=== PATIENT | female | born 1940 | race Two or more races ===

== ENCOUNTER 2017-06-21 13:19 | Emergency (ER) | payer OTHER ==
[2017-06-21 13:40] VITALS: TEMP 98; BMI 31.2
--- NOTE | 2017-06-21 14:16 | PDOC ---
History of Present Illness - General History Source: Patient Exam Limitations: No Limitations - History of Present Illness Initial Comments: 06/21/17 15:01 The patient is a 76 year old female with a past medical history of hypercholesterolemia, osteoarthritis and hyperactive bladder who arrives to the ED s/p fall that occurred two hours ago. The patient states she was walking in the lobby of her apartment when she slipped on a wet floor. She subsequently fell backwards. In the ED she complains of pain to her left forearm, right hip and lower back. She denies taking anything for pain but states her pain is pretty severe. She denies hitting her head or LOC. She denies any change in vision or focal deficits. She denies any fever, chills, nausea, vomiting, diarrhea, cough, SOB, CP, or urinary symptoms. <Fariha Richardson - Last Filed: 06/21/17 17:00> <Zohaib Moyer - Last Filed: 06/21/17 17:23> - General Chief Complaint: Injury Stated Complaint: FALL Time Seen by Provider: 06/21/17 14:06 Past History <Fariha Richardson - Last Filed: 06/21/17 17:00> - Past Medical History Anemia: Yes Asthma: No Cancer: No Cardiac Disorders: Yes (CHEST PAIN/SOB) CVA: No COPD: No CHF: No Dementia: No Diabetes: No GI Disorders: Yes (ACID REFLUX) Disorders: No HTN: Yes Hypercholesterolemia: Yes Liver Disease: No Seizures: No Thyroid Disease: No - Surgical History Abdominal Surgery: No Appendectomy: No Cardiac Surgery: No Cholecystectomy: Yes Lung Surgery: No Neurologic Surgery: No Orthopedic Surgery: Yes (RT KNEE REPLACEMENT) - Immunization History Immunization Up to Date: Yes - Psycho/Social/Smoking Cessation Hx Anxiety: No Suicidal Ideation: No Smoking History: Never smoked Have you smoked in the past 12 months: No Hx Alcohol Use: No Drug/Substance Use Hx: No Substance Use Type: None <Zohaib Moyer - Last Filed: 06/21/17 17:23> - Past Medical History Allergies/Adverse Reactions: Allergies Allergy/AdvReac Type Severity Reaction Status Date / Time No Known Drug Allergies Allergy Verified 06/21/17 13:35 Home Medications: Ambulatory Orders Alendronate Na [Fosamax (Weekly)] 70 mg PO WEEKLY 04/29/12 Aspirin Coated [Ecotrin -] 81 mg PO DAILY 04/29/12 Multivitamin/Iron/Folic Acid [Centrum Ultra Women's Tablet] 1 each PO DAILY 29/10 Rosuvastatin Calcium [Crestor] 10 mg PO HS 04/29/12 Calcium 250Mg/Vit-D 125 Units [Oscal 250 mg+D -] 500 mg PO BID 07/27/12 Lubiprostone [Amitiza] 8 mcg PO BID 07/27/12 Solifenacin Succinate [Vesicare -] 5 mg PO DAILY 07/27/12 Oxycodone HCl/Acetaminophen [Percocet 5/325 -] 1 - 2 tab PO Q4H #10 tablet 10/06 Ondansetron [Zofran *Odt*] 8 mg SL TID #30 od.tablet 06/21/17 Oxycodone HCl/Acetaminophen [Percocet 5-325 mg Tablet] 1 - 2 tab PO Q6H #20 tab MDD 6 06/21/17 Review of Systems - Review of Systems Able to Perform ROS?: Yes Comments:: 06/21/17 15:02 GENERAL/CONSTITUTIONAL: No fever or chills. No weakness. HEAD, EYES, EARS, NOSE AND THROAT: No change in vision. No ear pain or discharge. No sore throat. CARDIOVASCULAR: No chest pain or shortness of breath. RESPIRATORY: No cough, wheezing, or hemoptysis. GASTROINTESTINAL: No nausea, vomiting, diarrhea or constipation. GENITOURINARY: No dysuria, frequency, or change in urination. MUSCULOSKELETAL: Present: lower back pain, right forearm pain, left hip pain No neck pain. SKIN: No rash NEUROLOGIC: No headache, vertigo, loss of consciousness, or change in strength/ sensation. ENDOCRINE: No increased thirst. No abnormal weight change. HEMATOLOGIC/LYMPHATIC: No anemia, easy bleeding, or history of blood clots. ALLERGIC/IMMUNOLOGIC: No hives or skin allergy. All Other Systems: Reviewed and Negative <Fariha Richardson - Last Filed: 06/21/17 17:00> *Physical Exam - Vital Signs Last Vital Signs Temp Pulse Resp BP Pulse Ox 98.0 F 77 18 164/78 100 06/21/17 13:35 06/21/17 13:35 06/21/17 13:35 06/21/17 13:35 06/21/17 13:35 - Physical Exam Comments: 06/21/17 15:04 GENERAL: Awake, alert, and fully oriented, in no acute distress HEAD: No signs of trauma EYES: PERRLA, EOMI, sclera anicteric, conjunctiva clear ENT: Auricles normal inspection, hearing grossly normal, nares patent, oropharynx clear without exudates. Moist mucosa NECK: Normal ROM, supple, no lymphadenopathy, JVD, or masses LUNGS: Breath sounds equal, clear to auscultation bilaterally. No wheezes, and no crackles HEART: Regular rate and rhythm, normal S1 and S2, no murmurs, rubs or gallops ABDOMEN: Soft, nontender, normoactive bowel sounds. No guarding, no rebound. No masses EXTREMITIES: Normal range of motion, no edema. No clubbing or cyanosis. No cords, erythema, or tenderness BACK: Tenderness on palpation to L2-L5 paraspinal muscles. NEUROLOGICAL: Cranial nerves II through XII grossly intact. Normal speech, normal gait SKIN: Warm, Dry, normal turgor, no rashes or lesions noted. <Fariha Richardson - Last Filed: 06/21/17 17:00> - Vital Signs Last Vital Signs Temp Pulse Resp BP Pulse Ox 98.0 F 77 18 164/78 100 06/21/17 13:35 06/21/17 13:35 06/21/17 13:35 06/21/17 13:35 06/21/17 13:35 <Zohaib Moyer - Last Filed: 06/21/17 17:23> ED Treatment Course - Medications Given in the ED: ED Medications Discontinued Medications Generic Name Dose Route Start Last Admin Trade Name Archie PRN Reason Stop Dose Admin Ondansetron HCl 8 mg 06/21/17 14:32 06/21/17 14:56 Zofran Odt - SL 06/21/17 14:33 8 mg ONCE ONE Administration Oxycodone/Acetaminophen 1 combo 06/21/17 14:33 06/21/17 14:56 Percocet 5/325 - PO 06/21/17 14:34 1 combo ONCE ONE Administration <Fariha Richardson - Last Filed: 06/21/17 17:00> Medical Decision Making - Medical Decision Making 06/21/17 16:47 Left forearm X-ray as reviewed by Dr. Myers reports no fracture, but a calcific density projecting over the volar aspect of the proximal carpal row on the lateral projection of uncertain etiology which may be chronic and recommended clinical correlation for point tenderness. Right hip x-ray as reviewed by Dr. Key reports no acute bony abnormalities. 06/21/17 17:01 CT of L spine without contrast as reviewed by Dr. Martini reports minimal anterolisthesis of L5 over S1, likely degenerative. Otherwise no compression fracture or subluxation identified. L5-S1 minimal central disc bulge with marked bilateral facet hypertrophy. L4-L5 marked bilateral facet hypertrophy with fusion. T11-T12 moderate degenerative disc disease. <Fariha Richardson - Last Filed: 06/21/17 17:00> *DC/Admit/Observation/Transfer - Attestations Scribe Attestion: 06/21/17 15:05 Documentation prepared by Fariha Richardson, acting as medical referral coordinator for Zohaib Moyer DO. <Fariha Richardson - Last Filed: 06/21/17 17:00> - Discharge Dispostion Admit: No - Attestations Physician Attestion: 06/21/17 14:16 I, Dr. Zohaib Moyer, attest that this document has been prepared under my direction and personally reviewed by me in its entirety. I further attest, that it accurately reflects all work, treatment, procedures and medical decision -making performed by me. <Zohaib Moyer - Last Filed: 06/21/17 17:23> Diagnosis at time of Disposition: Multiple contusions Lumbar back sprain Qualifiers: Encounter type: initial encounter Qualified Code(s): S33.5XXA - Sprain of ligaments of lumbar spine, initial encounter - Discharge Dispostion Disposition: HOME Condition at time of disposition: Good - Prescriptions Prescriptions: Oxycodone HCl/Acetaminophen [Percocet 5-325 mg Tablet] 1 - 2 tab PO Q6H #20 tab MDD 6 Ondansetron [Zofran *Odt*] 8 mg SL TID #30 od.tablet - Referrals Referrals: Agustín Fuller MD [Primary Care Provider] - - Patient Instructions Printed Discharge Instructions: DI for Contusion, DI for Low Back Pain Additional Instructions: Aura- Sorry this happened to you today. All of your x-rays and ct scan were good. Nothing Broken. Just stoved, bruised and strained. The percocet is addicting and will cause drowsiness and confusion. Take it only if the pain is unbearable. Follow up with your doctor next week. Return to us if any problems. Best- Dr. Zohaib Moyer
[2017-06-21] MEDS ORDERED: ONDANSETRON *ODT* 4 MG TABLET SL ONE (14:32)
[2017-06-21] MEDS ORDERED: ONDANSETRON 8 MG TABLET (FP) PO ONE (14:54)
[2017-06-21 18:03] VITALS: BP 146/79; PULSE 92
== END 2017-06-21 18:02 | disposition home or self-care (01) ==
LOC: JER 13:19
DX: S33.5XXA Sprain of ligaments of lumbar spine, initial encounter (principal); S70.02XA Contusion of left hip, initial encounter; S70.01XA Contusion of right hip, initial encounter; S50.12XA Contusion of left forearm, initial encounter; W01.0XXA Fall on same level from slipping, tripping and stumbling without subsequent striking against object, initial encounter; Y93.89 Activity, other specified; Y92.038 Other place in apartment as the place of occurrence of the external cause; Y99.8 Other external cause status; I10 Essential (primary) hypertension; E78.00 Pure hypercholesterolemia, unspecified; M19.90 Unspecified osteoarthritis, unspecified site
CPT/HCPCS: 72131-TC; 73090-TC-LT; 73523-TC; 99283-25

== ENCOUNTER 2017-07-12 10:40 | Day surgery (SDC) | payer OTHER ==
[2017-07-09 14:53] VITALS: BMI 31.2
[2017-07-12] MEDS ORDERED: PROPOFOL 20 ML ONE ×4 (12:07→12:09)
[2017-07-12 13:15] VITALS: TEMP 97.7
[2017-07-12 14:29] VITALS: BP 128/65; PULSE 70
--- NOTE | 2017-07-13 11:33 | PATH ---
Surgical Pathology Report Patient Name: PAMELA MIRANDA [facility]. Rec. #: [id number] /Age/Gender: 1940 (Age: 76) / F Account: [id number] Location: U-ENDOSCOPY Taken: 07/12/2017 Received: 07/12/2017 Reported: 07/13/2017 Physicians: Zohaib Kim M.D. Specimen(s) Received A: BX STOMACH B: BX GE JUNCTION C: BX CECUM D: ASCENDING COLON Clinical History GERD Gastritis, hiatal hernia, lipoma cecum, polyp ascending colon, redundant colon, first grade hemorrhoids Final Diagnosis A. STOMACH, BIOPSY: GASTRIC FUNDIC MUCOSA WITH FOCAL MILD CHRONIC GASTRITIS, AND GASTRIC ANTRAL MUCOSA WITH MILD REACTIVE GASTROPATHY. IMMUNOSTAIN FOR H. PYLORI IS NEGATIVE. B. GE JUNCTION, BIOPSY: SQUAMOUS AND GASTRIC MUCOSA WITH CHRONIC INFLAMMATION. NO INTESTINAL METAPLASIA IDENTIFIED (NO BURROWS'S IDENTIFIED). C. COLON, CECUM, BIOPSY: COLONIC MUCOSA WITH NO PATHOLOGIC CHANGES. NO ADENOMATOUS OR HYPERPLASTIC CHANGES IDENTIFIED. NO ADIPOSE TISSUE OR SUBMUCOSAL TISSUE IDENTIFIED. D. COLON, ASCENDING, BIOPSY: TUBULAR ADENOMA. Electronically Signed Cedric Pinon M.D. Gross Description A. Received in formalin, labeled "biopsy stomach" are 2 hanks, irregular portions of soft tissue measuring 0.2 and 0.3 cm. in greatest dimension. The specimens are submitted in toto in one cassette. B. Received in formalin, labeled "biopsy GE junction" is a hanks, irregular portion of soft tissue measuring 0.3 cm. in greatest dimension. The specimen is submitted in toto in one cassette. C. Received in formalin, labeled "biopsy cecum" are 3 hanks, irregular portions of soft tissue ranging from 0.3-0.4 cm. in greatest dimension. The specimens are submitted in toto in one cassette. D. Received in formalin, labeled "biopsy ascending colon" is a hanks, irregular portion of soft tissue measuring 0.3 cm. in greatest dimension. The specimen is submitted in toto in one cassette. 07/12/201707/12/2017
== END 2017-07-12 15:40 | disposition home or self-care (01) ==
LOC: JASU-ENDO 10:40
PROVIDERS: ATTEND Internal Medicine Gastroenterology
PROC: 0DB38ZX Excision of Lower Esophagus, Via Natural or Artificial Opening Endoscopic, Diagnostic (ICD-10-PCS; 2017-07-12)
PROC: 0DB68ZX Excision of Stomach, Via Natural or Artificial Opening Endoscopic, Diagnostic (ICD-10-PCS; 2017-07-12)
PROC: 0DBK8ZX Excision of Ascending Colon, Via Natural or Artificial Opening Endoscopic, Diagnostic (ICD-10-PCS; principal; 2017-07-12 12:00)
DX: Z12.11 Encounter for screening for malignant neoplasm of colon (principal); Z86.010 Personal history of colon polyps; D12.2 Benign neoplasm of ascending colon; K57.30 Diverticulosis of large intestine without perforation or abscess without bleeding; K64.8 Other hemorrhoids; K63.89 Other specified diseases of intestine; K29.70 Gastritis, unspecified, without bleeding; K44.9 Diaphragmatic hernia without obstruction or gangrene; K20.9 Esophagitis, unspecified
CPT/HCPCS: 88305-TC; 88342-TC

== ENCOUNTER 2018-09-24 15:35 | Emergency (ER) | payer OTHER ==
--- NOTE | 2018-09-24 16:29 | PDOC ---
History of Present Illness - General Stated Complaint: COLD SYMPTOMS Time Seen by Provider: 09/24/18 16:11 - History of Present Illness Initial Comments: 09/24/18 16:29 Ms. Guevara is a 77 yo female w/ pmh of HLD, HTN, Herpes, prolapsed bladder (w/ incontinence), GERD, who presents for evaluation of 3 week history of cough with subsequent back pain. Patient reports cough was initially dry however progressed to include congestion productive of clear sputum and back pain. Patient has taken mucinex and a lozenge for relief from symptoms with little effect. The patient denies chest pain, shortness of breath, headache and dizziness. Denies fever, chills, nausea, vomit, diarrhea and constipation. Denies dysuria, frequency, urgency and hematuria. Past History - Past Medical History Allergies/Adverse Reactions: Allergies Allergy/AdvReac Type Severity Reaction Status Date / Time No Known Drug Allergies Allergy Verified 09/24/18 16:38 Home Medications: Ambulatory Orders Alendronate Na [Fosamax (Weekly)] 70 mg PO WEEKLY 04/29/12 Aspirin Coated [Ecotrin -] 81 mg PO DAILY 04/29/12 Multivitamin/Iron/Folic Acid [Centrum Ultra Women's Tablet] 1 each PO DAILY 29/10 Rosuvastatin Calcium [Crestor] 10 mg PO HS 04/29/12 Calcium 250Mg/Vit-D 125 Units [Oscal 250 mg+D -] 500 mg PO BID 07/27/12 Esomeprazole Magnesium 40 mg PO HS 07/08/17 Metoprolol Succinate [Toprol XL -] 25 mg PO DAILY 07/08/17 Valacyclovir HCl [Valtrex -] 1,000 mg PO BID 07/08/17 Acetaminophen 500 mg PO QID PRN 07/12/17 Acetaminophen/Caffeine/Butalb [Fioricet -] 1 tab PO Q8H PRN 07/12/17 Diclofenac Sodium [Diclofenac Sodium ER] 100 mg PO DAILY 07/12/17 Albuterol Sulfate [Proair Respiclick] 90 mcg IH Q4HWA PRN #1 aer.pow.ba Azithromycin [Zithromax 250mg Tablets -] 250 mg PO UTDICT #6 tab 09/24/18 Benzonatate [Tessalon Pearls -] 100 mg PO TID #21 capsule 09/24/18 Guaifenesin [Mucinex] 600 mg PO BID #10 tab.er.12h 09/24/18 Anemia: Yes Asthma: No Cancer: No Cardiac Disorders: Yes (CHEST PAIN/SOB) CVA: No COPD: No CHF: No Dementia: No Diabetes: No GI Disorders: Yes (ACID REFLUX) Disorders: No HTN: Yes Hypercholesterolemia: Yes Liver Disease: No Seizures: No Thyroid Disease: No - Surgical History Abdominal Surgery: No Appendectomy: No Cardiac Surgery: No Cholecystectomy: Yes Lung Surgery: No Neurologic Surgery: No Orthopedic Surgery: Yes (RT KNEE REPLACEMENT) - Immunization History Immunization Up to Date: Yes - Suicide/Smoking/Psychosocial Hx Smoking History: Never smoked Have you smoked in the past 12 months: No Hx Alcohol Use: No Drug/Substance Use Hx: No Substance Use Type: None Hx Substance Use Treatment: No Review of Systems - Review of Systems Comments:: 09/24/18 16:56 GENERAL/CONSTITUTIONAL: No fever or chills. No weakness. HEAD, EYES, EARS, NOSE AND THROAT: No change in vision. No ear pain or discharge. No sore throat. CARDIOVASCULAR: No chest pain or shortness of breath RESPIRATORY: +Constant cough as described w/ coinciding lower back pain. No wheezing, or hemoptysis. GASTROINTESTINAL: No nausea, vomiting, diarrhea or constipation. GENITOURINARY: No dysuria, frequency, or change in urination. MUSCULOSKELETAL: +Bilateral lower back pain with cough. No joint or muscle swelling or pain. No neck pain. SKIN: No rash NEUROLOGIC: No headache, vertigo, loss of consciousness, or change in strength/ sensation. ENDOCRINE: No increased thirst. No abnormal weight change HEMATOLOGIC/LYMPHATIC: No anemia, easy bleeding, or history of blood clots. ALLERGIC/IMMUNOLOGIC: No hives or skin allergy. *Physical Exam - Physical Exam Comments: 09/24/18 16:58 GENERAL: Awake, alert, and fully oriented, in no acute distress HEAD: No signs of trauma, normocephalic, atraumatic EYES: PERRLA, EOMI, sclera anicteric, conjunctiva clear ENT: Auricles normal inspection, hearing grossly normal, nares patent, oropharynx clear without exudates. Moist mucosa NECK: Normal ROM, supple, no lymphadenopathy, JVD, or masses LUNGS: No distress, speaks full sentences, clear to auscultation bilaterally HEART: Regular rate and rhythm, normal S1 and S2, no murmurs, rubs or gallops, peripheral pulses normal and equal bilaterally. ABDOMEN: Soft, nontender, normoactive bowel sounds. No guarding, no rebound. No masses EXTREMITIES: Normal inspection, Normal range of motion, no edema. No clubbing or cyanosis. NEUROLOGICAL: Cranial nerves II through XII grossly intact. Normal speech, normal gait, no focal sensorimotor deficits SKIN: Warm, Dry, normal turgor, no rashes or lesions noted. ED Treatment Course - LABORATORY CBC & Chemistry Diagram: 09/24/18 17:04 09/24/18 17:04 Medical Decision Making - Medical Decision Making 09/24/18 18:40 Ms. Guevara is a 77 yo female w/ pmh as described who presents for evaluation of symptoms c/w viral illness causing cough w/ resultant MSK pain. Patient labs grossly unconcerning as below, EKG regular rate, regular rhythm, normal access, normal interval, no ST elevation or depression. Normal EKG. CXR negative for acute findings. No concern for acute process at this time. Will cover patient with Z-selina and give mucinex, tessalon pearls, and breathing treatment for symptomatic relief. Discharging to home. Laboratory Results - last 24 hr 09/24/18 09/24/18 09/24/18 17:04 17:04 17:04 WBC 4.6 RBC 3.84 Hgb 12.5 Hct 35.5 MCV 92.5 MCH 32.5 MCHC 35.1 RDW 14.2 Plt Count 213 MPV 10.0 Absolute Neuts (auto) 1.6 Neutrophils % 34.1 L Lymphocytes % 55.4 H Monocytes % 9.5 Eosinophils % 0.1 Basophils % 0.9 Nucleated RBC % 0 Sodium 141 Potassium 4.2 Chloride 103 Carbon Dioxide 29 Anion Gap 9 BUN 19 H Creatinine 0.6 Creat Clearance w eGFR > 60 Random Glucose 81 Calcium 9.8 Total Bilirubin 0.3 AST 27 ALT 21 Alkaline Phosphatase 85 Creatine Kinase Troponin I B-Natriuretic Peptide 427.8 Total Protein 7.4 Albumin 3.8 Urine Color Lavinia Urine Appearance Slcloudy Urine pH 5.0 Ur Specific [place] 1.019 Urine Protein Negative Urine Glucose (UA) Negative Urine Ketones Negative Urine Blood Negative Urine Nitrite Negative Urine Bilirubin Negative Urine Urobilinogen Negative Ur Leukocyte Esterase Negative Influenza A (Rapid) Influenza B (Rapid) 09/24/18 09/24/18 17:04 17:05 WBC RBC Hgb Hct MCV MCH MCHC RDW Plt Count MPV Absolute Neuts (auto) Neutrophils % Lymphocytes % Monocytes % Eosinophils % Basophils % Nucleated RBC % Sodium Potassium Chloride Carbon Dioxide Anion Gap BUN Creatinine Creat Clearance w eGFR Random Glucose Calcium Total Bilirubin AST ALT Alkaline Phosphatase Creatine Kinase 51 Troponin I < 0.02 B-Natriuretic Peptide Total Protein Albumin Urine Color Urine Appearance Urine pH Ur Specific [place] Urine Protein Urine Glucose (UA) Urine Ketones Urine Blood Urine Nitrite Urine Bilirubin Urine Urobilinogen Ur Leukocyte Esterase Influenza A (Rapid) Negative Influenza B (Rapid) Negative *DC/Admit/Observation/Transfer Diagnosis at time of Disposition: Musculoskeletal pain URI (upper respiratory infection) Qualifiers: URI type: unspecified URI Qualified Code(s): J06.9 - Acute upper respiratory infection, unspecified - Discharge Dispostion Disposition: HOME - Prescriptions Prescriptions: Albuterol Sulfate [Proair Respiclick] 90 mcg IH Q4HWA PRN #1 aer.pow.ba PRN Reason: Wheezing Azithromycin [Zithromax 250mg Tablets -] 250 mg PO UTDICT #6 tab Benzonatate [Tessalon Pearls -] 100 mg PO TID #21 capsule Guaifenesin [Mucinex] 600 mg PO BID #10 tab.er.12h - Referrals Referrals: Agustín Fuller MD [Primary Care Provider] - - Patient Instructions Printed Discharge Instructions: DI for Viral Upper Respiratory Infection -- Adult Additional Instructions: You were evaluated today in the ER for your cough and pain. No concerning findings were found at this time. We sent prescriptions to your pharmacy. Please take all medications as written. Follow-up with primary care provider for further evaluation. Return to ED if any fever, chills, increased pain, or other concerning symptoms. - Post Discharge Activity
[2018-09-24 16:38] VITALS: BMI 31.2
[2018-09-24] MEDS ORDERED: ACETAMINOPHEN 1000 MG/100 ML VIAL (NON FORMULARY) IVPB ONE (16:38)
[2018-09-24] MEDS ORDERED: ALBUTEROL SO4 2.5/IPRATROPIUM 0.5 INH SOL 3 ML VIAL.NEB. NEB ONE (17:03)
--- NOTE | 2018-09-24 17:17 | PDOC ---
Attending Attestation - HPI HPI: 09/24/18 18:02 The patient is a 77 year old female with past medical history of hypertension, hyperlipidemia, herpes, prolapsed bladder, GERD who presents to the ED with complaints of three weeks of worsening productive cough with associated rib and lower back pain. She reports associated rhinorrhea and denies any fever, chills , NVD, shortness of breath, chest pain, or urinary complaints. She has not taken any medications other than cough syrup. - Physicial Exam PE: 09/24/18 18:03 GENERAL: Awake, alert, and fully oriented HEAD: No signs of trauma ENT: Oropharynx clear without exudates. Moist mucosa. Rhinorrhea. LUNGS: Breath sounds equal, clear to auscultation bilaterally. HEART: Regular rate and rhythm. ABDOMEN: Soft, nontender. NEUROLOGICAL: Cranial nerves II through XII grossly intact. Normal speech, normal gait SKIN: Warm, Dry, normal turgor, no rashes - Medical Decision Making 09/24/18 18:03 Documentation prepared by Fariha Richardson, acting as hospital medical biller for Mima Guzman DO. <Fariha Richardson - Last Filed: 09/24/18 18:02> - Resident Resident Name: [email or web address] - ED Attending Attestation I have performed the following: I have examined & evaluated the patient, The case was reviewed & discussed with the resident, I agree w/resident's findings & plan, Exceptions are as noted - Medical Decision Making 09/24/18 17:17 I, Dr. Mima Guzman DO, attest that this document has been prepared under my direction and personally reviewed by me in its entirety. I further attest, that it accurately reflects all work, treatment, procedures and medical decision -making performed by me. 09/24/18 17:20 a/p: 77yo female with cough/congestion and now back pain when coughing x 3 weeks -no f/c -pain only when coughing, back pain only when coughing -no abd pain, no n/v/d, no dysuria -rhinorrhea, had sore throat at the beginning, which has resolved -productive cough, taking robitussin -pt is nontoxic in appearance -lungs are clear, suspect mucopurulent bronchitis -will check labs, ekg, cxr -neb treatment 09/24/18 18:26 cxr clear flu negative feeling better after neb will give inhaler and zpack for mucopurulent bronchitis stable for d/c to home and follow up with pmd as outpt <Mima Guzman - Last Filed: 09/24/18 18:28> Heart Score/ECG Review - ECG Intrepretation Comment:: 09/24/18 18:27 sinus at 61, nl axis, nl interval, no acute st/t wave findings <Mima Guzman - Last Filed: 09/24/18 18:28>
[2018-09-24 17:20] LABS: BASO % 0.9 % (0-2.0); EOS % 0.1 % (0-4.5); HEMATOCRIT 35.5 % (32.4-45.2); HEMOGLOBIN 12.5 GM/dL (10.7-15.3); LYMPH % 55.4 % (8-40); MCH 32.5 pg (25.7-33.7); MCHC 35.1 g/dl (32.0-36.0); MEAN CELL VOLUME 92.5 fl (80-96); MONO % 9.5 % (3.8-10.2); NEUT % 34.1 % (42.8-82.8); PLATELET COUNT 213 K/MM3 (134-434); RBC 3.84 M/mm3 (3.60-5.2); RDW 14.2 % (11.6-15.6); WHITE BLOOD COUNT 4.6 K/mm3 (4.0-10.0)
[2018-09-24] MEDS ORDERED: ACETAMINOPHEN INJECTION 100 ML IVPB ONE (17:24)
[2018-09-24 17:25] LABS: URINE APPEARANCE SLCLOUDY; URINE BILIRUBIN NEGATIVE (<2.0 mg/dL); URINE COLOR AMBER; URINE GLUCOSE (UA) NEGATIVE (NEGATIVE); URINE KETONE NEGATIVE (NEGATIVE); URINE LEUK ESTERASE NEGATIVE (NEGATIVE); URINE NITRITE NEGATIVE (NEGATIVE); URINE PROTEIN NEGATIVE (NEGATIVE); URINE UROBILINOGEN NEGATIVE mg/dL (0.2-1.0)
[2018-09-24 18:01] LABS: ALBUMIN 3.8 g/dl (3.4-5.0); ALK PHOS 85 U/L (45-117); ANION GAP 9 MMOL/L (8-16); BILIRUBIN,TOTAL 0.3 mg/dL (0.2-1); BLOOD UREA NITROGEN 19 mg/dL (7-18); CALCIUM 9.8 mg/dL (8.5-10.1); CHLORIDE 103 mmol/L (98-107); CO2 29 mmol/L (21-32); CREATININE 0.6 mg/dL (0.55-1.3); GLUCOSE,RANDOM 81 mg/dL (74-106); N-TERMINAL BNP 427.8 pg/ml (5-450); POTASSIUM 4.2 mmol/L (3.5-5.1); SGOT/AST 27 U/L (15-37); SGPT/ALT 21 U/L (13-61); SODIUM 141 mmol/L (136-145); TOT PROT 7.4 g/dl (6.4-8.2)
[2018-09-24 18:55] VITALS: BP 121/48; PULSE 69
[2018-09-24 18:58] VITALS: TEMP 98.4
--- NOTE | 2018-09-25 13:39 | EKG ---
Test Reason : Blood Pressure : / mmHG Vent. Rate : 065 BPM Atrial Rate : 065 BPM P-R Int : 184 ms QRS Dur : 086 ms QT Int : 406 ms P-R-T Axes : 050 001 014 degrees QTc Int : 422 ms NORMAL SINUS RHYTHM NORMAL ECG WHEN COMPARED WITH ECG OF 24-JUN-2008 23:03, NO SIGNIFICANT CHANGE WAS FOUND Confirmed by DENAE RICHARDS MD ([id number]) on 09/25/2018 1:38:59 PM Referred By: Confirmed By:DENAE RICHARDS MD
== END 2018-09-24 19:13 | disposition home or self-care (01) ==
LOC: JER 15:35
PROC: 3E0F7GC Introduction of Other Therapeutic Substance into Respiratory Tract, Via Natural or Artificial Opening (ICD-10-PCS; principal; 2018-09-24)
PROC: 3E033NZ Introduction of Analgesics, Hypnotics, Sedatives into Peripheral Vein, Percutaneous Approach (ICD-10-PCS; 2018-09-24)
DX: J06.9 Acute upper respiratory infection, unspecified (principal); I10 Essential (primary) hypertension; E78.5 Hyperlipidemia, unspecified; K21.9 Gastro-esophageal reflux disease without esophagitis; E03.9 Hypothyroidism, unspecified; N81.10 Cystocele, unspecified; Z96.651 Presence of right artificial knee joint
CPT/HCPCS: 36415; 71046-TC-FY; 80053; 81003; 82550; 83880; 84484; 85025; 87086; 87804; 93005; 93010; 99284-25; J0131

== ENCOUNTER 2019-04-17 15:52 | Emergency (ER) | payer OTHER | END 2019-04-17 17:30 | disposition home or self-care (01) | LOC: JERFT 15:52 ==

== ENCOUNTER 2021-06-06 05:03 | Day surgery (SDC) | payer OTHER ==
[2021-06-05 14:17] VITALS: BMI 29.7
[2021-06-06 12:41] VITALS: TEMP 97.8
[2021-06-06 13:58] VITALS: BP 122/65; PULSE 72
== END 2021-06-06 14:11 | disposition home or self-care (01) ==
LOC: JASU-ENDO 05:03
PROVIDERS: ATTEND Internal Medicine Gastroenterology
PROC: 0DB98ZX Excision of Duodenum, Via Natural or Artificial Opening Endoscopic, Diagnostic (ICD-10-PCS; 2021-06-06)
PROC: 0DB68ZX Excision of Stomach, Via Natural or Artificial Opening Endoscopic, Diagnostic (ICD-10-PCS; 2021-06-06)
PROC: 0DB48ZX Excision of Esophagogastric Junction, Via Natural or Artificial Opening Endoscopic, Diagnostic (ICD-10-PCS; 2021-06-06)
PROC: 0DJD8ZZ Inspection of Lower Intestinal Tract, Via Natural or Artificial Opening Endoscopic (ICD-10-PCS; principal; 2021-06-06 12:00)
DX: Z12.11 Encounter for screening for malignant neoplasm of colon (principal); Z86.010 Personal history of colon polyps; K64.8 Other hemorrhoids; K57.30 Diverticulosis of large intestine without perforation or abscess without bleeding; D64.9 Anemia, unspecified; K21.00 Gastro-esophageal reflux disease with esophagitis, without bleeding; K44.9 Diaphragmatic hernia without obstruction or gangrene; K25.9 Gastric ulcer, unspecified as acute or chronic, without hemorrhage or perforation
CPT/HCPCS: 43239; G0105; 88305-TC; 88342-TC

== ENCOUNTER 2022-12-04 04:44 | Day surgery (SDC) | payer OTHER ==
[2022-12-03 12:57] VITALS: BMI 29.2
[2022-12-04 10:59] VITALS: TEMP 97.8
[2022-12-04 12:17] VITALS: BP 144/85; PULSE 94; RESP 18
== END 2022-12-04 12:35 | disposition home or self-care (01) ==
LOC: JASU-ENDO 04:44
PROVIDERS: ATTEND Internal Medicine Gastroenterology
PROC: 0DB78ZX Excision of Stomach, Pylorus, Via Natural or Artificial Opening Endoscopic, Diagnostic (ICD-10-PCS; 2022-12-04)
PROC: 0DB68ZX Excision of Stomach, Via Natural or Artificial Opening Endoscopic, Diagnostic (ICD-10-PCS; 2022-12-04)
PROC: 0DB48ZX Excision of Esophagogastric Junction, Via Natural or Artificial Opening Endoscopic, Diagnostic (ICD-10-PCS; 2022-12-04)
PROC: 0DB98ZX Excision of Duodenum, Via Natural or Artificial Opening Endoscopic, Diagnostic (ICD-10-PCS; principal; 2022-12-04 11:00)
DX: K21.00 Gastro-esophageal reflux disease with esophagitis, without bleeding (principal); K44.9 Diaphragmatic hernia without obstruction or gangrene; K29.40 Chronic atrophic gastritis without bleeding; K22.89 Other specified disease of esophagus; K31.9 Disease of stomach and duodenum, unspecified
CPT/HCPCS: 88305-TC; 88342-TC

== ENCOUNTER 2024-12-21 16:41 | Emergency (ER) | payer OTHER ==
[2024-12-21 16:55] VITALS: BMI 29.7
[2024-12-21] MEDS ORDERED: ACETAMINOPHEN 325 MG TABLET (FP) ONE (17:24)
[2024-12-21] MEDS ORDERED: LIDOCAINE 5% TOPICAL PATCH ONE (17:25)
[2024-12-21] MEDS: LIDOCAINE 5% TOPICAL PATCH TP ONE (17:28)
[2024-12-21] MEDS: ACETAMINOPHEN 325 MG TABLET (FP) PO ONE (17:28)
[2024-12-21 18:32] VITALS: BP 137/70; PULSE 76; RESP 17; TEMP 98.2
[2024-12-21] MEDS ORDERED: LIDOCAINE PATCH REMOVAL MC SCH (22:00)
== END 2024-12-21 19:13 | disposition home or self-care (01) ==
LOC: FER 16:41
DX: M54.6 Pain in thoracic spine (principal); W01.198A Fall on same level from slipping, tripping and stumbling with subsequent striking against other object, initial encounter
CPT/HCPCS: 70450-TC; 72125-TC; 99284-25